=== PATIENT | female | born 1990 | race Caucasian/White ===

== ENCOUNTER 2020-02-02 19:21 | Emergency (ER) | payer OTHER, SELFPAY ==
[2020-02-02 19:42] LABS: Basophils # 0.1 10^3/uL (0.0-0.1); Basophils % 0.6 %; Eosinophils % 0.1 %; Hematocrit 39.3 % (37.0-47.0); Hemoglobin 12.5 g/dL (11.5-15.3); Lymphocytes # 1.6 10^3/uL (0.8-4.8); Mean Corpuscular HGB Conc 31.8 g/dL (30.0-36.0); Mean Corpuscular Hemoglobin 29.1 pg (28.0-34.0); Mean Corpuscular Volume 91.6 fL (81-99); Mean Platelet Volume 10.2 fL (7.4-10.4); Monocytes # 0.5 10^3/uL (0.2-0.9); Monocytes % 5.9 %; Neutrophils # 5.91 10^3/uL (1.8-7.7); Neutrophils % 73.2 %; Nucleated Red Blood Cells % 0 %; Platelet Count 258 10^3/cmm (130-400); Red Blood Count 4.29 10^6/uL (4.1-5.3); Red Cell Distribution Width 14.5 % (12.1-15.1); White Blood Count 8.1 10^3/uL (4.0-10.0)
[2020-02-02 19:54] VITALS: BP 128/83; PULSE 100; RESP 18; TEMP 36.7; O2SAT 100; BMI 35.1
[2020-02-02 19:57] LABS: HCG, Serum Qual Negative (Negative)
[2020-02-02 20:01] LABS: Alanine Aminotransferase 35 U/L (0-33); Albumin Level 4.1 g/dL (3.5-5.2); Alkaline Phosphatase 88 IU/L (35-105); Anion Gap 15.2 (5-19); Aspartate Amino Transferase 22 U/L (0-32); Blood Urea Nitrogen 9 mg/dL (6-20); Calcium 8.6 mg/dL (8.5-10.5); Carbon Dioxide 22 mmol/L (22-29); Chloride 105 mmol/L (98-107); Globulin 2.9 g/dL (1.3-4.6); Glomerular Filtration Rate 65.6 mL/min (90-130); Glucose 111 mg/dL (65-115); Lipase 148 U/L (13-60); Osmolality Calculated 283 mOsm/kg (285-295); Potassium 4.2 mmol/L (3.5-5.1); Sodium 138 mmol/L (136-145); Total Bilirubin 0.7 mg/dL (0.15-1.2)
--- NOTE | 2020-02-02 20:40 | W.ED.ABDPA2 ---
HPI - Abdominal Pain General: Chief Complaint: Abdominal Pain Stated Complaint: l breast pain, n/v/d, back pain Time Seen by Provider: 02/02/20 20:33 Source: patient Mode of arrival: ambulatory Limitations: no limitations History of Present Illness: HPI narrative: 29-year-old female who states over the last days she has been having lower back and lower abdominal pain that is been sharp and crampy in nature. States she is also had diarrhea in vomiting. States pain is a 5 out of 10. She denies any worsening or improving factors. She denies any fevers. States she is also had some left breast pain. She denies any nipple discharge or fevers. Associated Symptoms: Reports nausea and vomiting; Denies chills, dysuria and fever(s) Review of Systems Const: Denies: fever(s), chills, body aches or change in appetite Eyes: Denies: blurry vision or eye discomfort ENMT: Denies: throat pain or dental pain Card: Denies: chest pain Resp: Denies: dyspnea GI: Reports: abdominal pain, nausea and vomiting : Denies: dysuria Musc: Denies: neck pain or back pain Skin/Breast: Reports: breast pain Neuro: Denies: headache(s) Psych: Denies: depression [place]/Lymph: Denies: easy bruising All/Imm: Denies: urticaria Physical Exam Const: COMMON NORMALS: no acute distress, patient oriented x3 and healthy appearing HENMT: COMMON NORMALS: normocephalic and atraumatic HEAD & SCALP: normocephalic and atraumatic Eye: COMMON NORMALS: Equal, round and reactive pupils present and EOMs intact bilaterally PUPIL: Yes Equal, round and reactive pupils present Neck/C-Spine: COMMON NORMALS: full ROM and supple Chest: COMMONS NORMALS: normal inspection of the chest and normal palpation of entire chest wall OTHER: This left breast is normal-appearing. She has no redness or warmth to touch. No masses were palpated Resp: COMMON NORMALS: normal respiratory effort, No retractions, No use of accessory muscles and clear to auscultation bilaterally AUSCULTATION: clear to auscultation bilaterally Cardio: COMMON NORMALS: regular rate, regular rhythm and No murmurs present (Cardio) RATE: regular rate RHYTHM: regular rhythm GI: COMMON NORMALS: Normal to inspection, nondistended, normoactive bowel sounds present, Soft to palpation, non-tender and no masses PALPATION: Yes Soft to palpation Extremity: COMMON NORMALS: normal to inspection and full ROM Neuro: COMMON NORMALS: patient oriented x3, moves all extremities and no focal motor deficits Psych: COMMON NORMALS: mental status grossly normal, Normal thought process present and cooperative THOUGHT PROCESS: Normal thought process present Skin: COMMON NORMALS: no rashes or lesions noted and no wounds GENERAL SKIN EXAM: no rashes or lesions noted Course Vital Signs: Vital signs: Vital Signs Temperature 98.1 F 02/02/20 19:54 Pulse Rate 104 H 02/02/20 20:44 Respiratory Rate 14 02/02/20 21:09 Blood Pressure 126/62 02/02/20 20:44 Pulse Oximetry 99 02/02/20 20:44 MDM - Abdominal Pain MDM Narrative: Medical decision making narrative: Rachana presents here with abdominal pain along with diarrhea and vomiting. CT shows a possible colitis. Patient's blood work here is normal. We will place her on Cipro Flagyl along with pain meds. She is stable for discharge and return if worsening. She understands and agrees to plan Lab Data: Labs: Lab Results 02/02/20 02/02/20 02/02/20 Range/Units 19:35 19:35 19:35 WBC 8.1 (4.0-10.0) 10^3/ uL RBC 4.29 (4.1-5.3) 10^6/u L Hgb 12.5 (11.5-15.3) g/dL Hct 39.3 (37.0-47.0) % MCV 91.6 (81-99) fL MCH 29.1 (28.0-34.0) pg MCHC 31.8 (30.0-36.0) g/dL RDW 14.5 (12.1-15.1) % Plt Count 258 (130-400) 10^3/c mm MPV 10.2 (7.4-10.4) fL Neut % (Auto) 73.2 % Lymph % (Auto) 20.0 % [place] % (Auto) 5.9 % Eos % (Auto) 0.1 % Baso % (Auto) 0.6 % Neut # (Auto) 5.91 (1.8-7.7) 10^3/u L Lymph # (Auto) 1.6 (0.8-4.8) 10^3/u L [place] # (Auto) 0.5 (0.2-0.9) 10^3/u L Eos # (Auto) 0.0 (0.0-0.8) 10^3/u L Baso # (Auto) 0.1 (0.0-0.1) 10^3/u L Nucleated RBC % (a uto) 0 % Nucleated RBCs # 0.0 /100WBC Sodium 138 (136-145) mmol/L Potassium 4.2 (3.5-5.1) mmol/L Chloride 105 (98-107) mmol/L Carbon Dioxide 22 (22-29) mmol/L Anion Gap 15.2 (5-19) BUN 9 (6-20) mg/dL Creatinine 1.0 H (0.5-0.9) mg/dL GFR Calculation 65.6 L (90-130) mL/min Glucose 111 (65-115) mg/dL Calculated Osmolal ity 283 L (285-295) mOsm/k g Calcium 8.6 (8.5-10.5) mg/dL Total Bilirubin 0.7 (0.15-1.2) mg/dL AST 22 (0-32) U/L ALT 35 H (0-33) U/L Alkaline Phosphata se 88 (35-105) IU/L Total Protein 7.0 (6.6-8.7) g/dL Albumin 4.1 (3.5-5.2) g/dL Globulin 2.9 (1.3-4.6) g/dL Lipase 148 H (13-60) U/L HCG, Qual Negative (Negative) Urine Color (Yellow) Urine Appearance (CLEAR) Urine pH (5-7) Ur Specific Gravit y (1.005-1.030) Urine Protein (Negative) Urine Glucose (UA) (Normal) Urine Ketones (Negative) Urine Blood (Negative) Urine Nitrate (Negative) Urine Bilirubin (NEGATIVE) Urine Urobilinogen (Negative) mg/dL Ur Leukocyte Taryn ase (Negative) 02/02/20 Range/Units 20:20 WBC (4.0-10.0) 10^3/ uL RBC (4.1-5.3) 10^6/u L Hgb (11.5-15.3) g/dL Hct (37.0-47.0) % MCV (81-99) fL MCH (28.0-34.0) pg MCHC (30.0-36.0) g/dL RDW (12.1-15.1) % Plt Count (130-400) 10^3/c mm MPV (7.4-10.4) fL Neut % (Auto) % Lymph % (Auto) % [place] % (Auto) % Eos % (Auto) % Baso % (Auto) % Neut # (Auto) (1.8-7.7) 10^3/u L Lymph # (Auto) (0.8-4.8) 10^3/u L [place] # (Auto) (0.2-0.9) 10^3/u L Eos # (Auto) (0.0-0.8) 10^3/u L Baso # (Auto) (0.0-0.1) 10^3/u L Nucleated RBC % (a uto) % Nucleated RBCs # /100WBC Sodium (136-145) mmol/L Potassium (3.5-5.1) mmol/L Chloride (98-107) mmol/L Carbon Dioxide (22-29) mmol/L Anion Gap (5-19) BUN (6-20) mg/dL Creatinine (0.5-0.9) mg/dL GFR Calculation (90-130) mL/min Glucose (65-115) mg/dL Calculated Osmolal ity (285-295) mOsm/k g Calcium (8.5-10.5) mg/dL Total Bilirubin (0.15-1.2) mg/dL AST (0-32) U/L ALT (0-33) U/L Alkaline Phosphata se (35-105) IU/L Total Protein (6.6-8.7) g/dL Albumin (3.5-5.2) g/dL Globulin (1.3-4.6) g/dL Lipase (13-60) U/L HCG, Qual (Negative) Urine Color Yellow (Yellow) Urine Appearance Clear (CLEAR) Urine pH 5 (5-7) Ur Specific Gravit y 1.025 (1.005-1.030) Urine Protein Neg (Negative) Urine Glucose (UA) Norm (Normal) Urine Ketones Negative (Negative) Urine Blood Neg (Negative) Urine Nitrate Negative (Negative) Urine Bilirubin Neg (NEGATIVE) Urine Urobilinogen Norm (Negative) mg/dL Ur Leukocyte Taryn ase Negative (Negative) Imaging Data ^: CT Abd/Pel: Radiologist's impression: [facility] [address] [place] [address] CT Scan Report Signed Patient: Rachana Baig Unit #: [id number] : 1990 Age/Sex: 29 / F ADM Date: 02/02/20 Loc: ER Room/Bed: Attending Dr: Ordering Provider/Ordering MD: Estee Sanabria MD Date of Service: 02/02/20 Procedure(s): CT abdomen pelvis w con* [id number] Accession Number(s): [id number] Report Number: [id number] PROCEDURE INFORMATION: Exam: CT Abdomen And Pelvis With Contrast Exam date and time: 02/02/2020 9:23 PM Age: 29 years old Clinical indication: Abdominal pain; Generalized; Prior surgery; Surgery type: Cholecystectomy, appendectomy, hysterectomy, btl; Additional info: Abd pain TECHNIQUE: Imaging protocol: Computed tomography of the abdomen and pelvis with intravenous contrast. Radiation optimization: All CT scans at this facility use at least one of these dose optimization techniques: automated exposure control; mA and/or kV adjustment per patient size (includes targeted exams where dose is matched to clinical indication); or iterative reconstruction. Contrast material: OMNI 300; Contrast volume: 95 ml; Contrast route: INTRAVENOUS (IV); COMPARISON: [facility] [place] [facility] 01/09/2017 2:59 PM RADIATION DOSE METRICS: Total DLP (mGy-cm): 1618.11 FINDINGS: Liver: There is a diffuse decrease in hepatic parenchymal density, consistent with mild fatty infiltration. There is no focal abnormality within the liver. Gallbladder and bile ducts: There has been a cholecystectomy. Pancreas: The pancreas is normal. Spleen: The spleen is normal. Adrenals: The adrenal glands are normal. Kidneys and ureters: There are multiple bilateral renal collecting system calcifications. There is no evidence of hydronephrosis. There is no evidence of renal or ureteral calcifications. Stomach and bowel: There is no evidence of intestinal obstruction. There is mild thickening and fatty deposition in the wall of the distal gastric antrum which may be a normal appearance. There is fluid throughout the colon with mild thickening of the distal descending and sigmoid colon which could represent some nonspecific colitis or enteritis. Correlation with the clinical findings is suggested. Appendix: There has been an appendectomy. Intraperitoneal space: There is no evidence of free intraperitoneal fluid. Vasculature: Unremarkable. No abdominal aortic aneurysm. Lymph nodes: Unremarkable. No enlarged lymph nodes. Bladder: Unremarkable as visualized. Reproductive: There has been a hysterectomy. Bones/joints: Unremarkable. No acute fracture. Soft tissues: Unremarkable. CT/CT abdomen pelvis w con* [id number] IMPRESSION: 1. Nephrolithiasis. 2. Mild fatty liver. 3. Question of mild nonspecific colitis. Correlation with clinical findings is suggested. Discharge Plan Discharge Patient Disposition: Home Clinical Impression: Colitis Condition: Stable Prescriptions: [place] 5-325 mg tablet 1 tab PO Q6H PRN (Reason: pain) Qty: 10 RF: 0 ondansetron 4 mg tablet,disintegrating 4 mg PO Q6H PRN (Reason: nausea and vomiting) Qty: 14 RF: 0 ciprofloxacin HCl 500 mg tablet 500 mg PO BID Qty: 14 RF: 0 Flagyl 500 mg tablet 500 mg PO Q8H 7 Days Qty: 21 RF: 0 Discharge Orders: Discharge Order (Routine); Ordered 02/02/20 Ordered By: Estee Sanabria Referrals: Curtis Byrnes MD [Primary Care Provider] - 1-3 days Discharge Diet: Advance as tolerated Discharge Activity: Resume usual activity Patient Instructions: Infectious Colitis (ED) Coding Level of Care Code ED Mental Health Program Specialist for Chg Fwd Exam Comprehensive
[2020-02-02 20:44] VITALS: BP 126/62; PULSE 104; RESP 17; O2SAT 99
[2020-02-02 20:55] LABS: Add Urine Microscopic? NO
[2020-02-02 21:07] LABS: Bilirubin Urine Neg (NEGATIVE); Blood Urine Neg (Negative); Glucose Urine UA Norm (Normal); Ketones Urine Negative (Negative); Leukocyte Esterase Urine Negative (Negative); Nitrate Urine Negative (Negative); Protein Urine Neg (Negative); Specific Gravity, Urine 1.025 (1.005-1.030); Urine Appearance Clear (CLEAR); Urine Color Yellow (Yellow); Urobilinogen Urine Norm (Negative); pH Urine 5 (5-7)
[2020-02-02 21:09] VITALS: RESP 14
[2020-02-02] MEDS: morphine 4 mg/mL SDV 1 mL IVP (21:09)
[2020-02-02] MEDS: ondansetron 2 mg/ML SDV 2 mL 4 MG IVP (21:10)
--- NOTE | 2020-02-02 21:12 | CTR_ITS ---
PROCEDURE INFORMATION: Exam: CT Abdomen And Pelvis With Contrast Exam date and time: 02/02/2020 9:23 PM Age: 29 years old Clinical indication: Abdominal pain; Generalized; Prior surgery; Surgery type: Cholecystectomy, appendectomy, hysterectomy, btl; Additional info: Abd pain TECHNIQUE: Imaging protocol: Computed tomography of the abdomen and pelvis with intravenous contrast. Radiation optimization: All CT scans at this facility use at least one of these dose optimization techniques: automated exposure control; mA and/or kV adjustment per patient size (includes targeted exams where dose is matched to clinical indication); or iterative reconstruction. Contrast material: OMNI 300; Contrast volume: 95 ml; Contrast route: INTRAVENOUS (IV); COMPARISON: US [facility] [place] [facility] 01/09/2017 2:59 PM RADIATION DOSE METRICS: Total DLP (mGy-cm): 1618.11 FINDINGS: Liver: There is a diffuse decrease in hepatic parenchymal density, consistent with mild fatty infiltration. There is no focal abnormality within the liver. Gallbladder and bile ducts: There has been a cholecystectomy. Pancreas: The pancreas is normal. Spleen: The spleen is normal. Adrenals: The adrenal glands are normal. Kidneys and ureters: There are multiple bilateral renal collecting system calcifications. There is no evidence of hydronephrosis. There is no evidence of renal or ureteral calcifications. Stomach and bowel: There is no evidence of intestinal obstruction. There is mild thickening and fatty deposition in the wall of the distal gastric antrum which may be a normal appearance. There is fluid throughout the colon with mild thickening of the distal descending and sigmoid colon which could represent some nonspecific colitis or enteritis. Correlation with the clinical findings is suggested. Appendix: There has been an appendectomy. Intraperitoneal space: There is no evidence of free intraperitoneal fluid. Vasculature: Unremarkable. No abdominal aortic aneurysm. Lymph nodes: Unremarkable. No enlarged lymph nodes. Bladder: Unremarkable as visualized. Reproductive: There has been a hysterectomy. Bones/joints: Unremarkable. No acute fracture. Soft tissues: Unremarkable. CT/CT abdomen pelvis w con* [id number] IMPRESSION: 1. Nephrolithiasis. 2. Mild fatty liver. 3. Question of mild nonspecific colitis. Correlation with clinical findings is suggested. Radiation Dose CTDIVOL = (mGy): DLP = 1618.11 (mGy-cm)
[2020-02-02] MEDS: iohexol 300 mg/mL 100 mL Btl IV (21:31)
[2020-02-02 23:02] VITALS: BP 143/74; PULSE 88; RESP 14; O2SAT 98
== END 2020-02-02 23:03 | disposition home or self-care (01) ==
PROVIDERS: Emergency Provider Emergency Medicine; PCP Family Medicine
DX: K52.9 Noninfective gastroenteritis and colitis, unspecified (principal)
CPT/HCPCS: 12345; 36415; 74177; 80053; 81003; 83690; 84703; 85025; 96374; 96375; 96376; 99282; 99283; J2270; J2405; Q9967

== ENCOUNTER → 2020-02-16 16:32 | Outpatient (BNVA) | payer OTHER, SELFPAY | PROVIDERS: Family Provider Family Medicine; PCP Family Medicine; Visit Provider Obstetrics & Gynecology | DX: N87.1 Moderate cervical dysplasia (principal); Z87.42 Personal history of other diseases of the female genital tract; Z90.710 Acquired absence of both cervix and uterus | CPT/HCPCS: 88175 ==

== ENCOUNTER → 2020-08-14 10:20 | Outpatient (BNVA) | payer OTHER, SELFPAY | PROVIDERS: Family Provider Family Medicine; PCP Family Medicine; Visit Provider Obstetrics & Gynecology | DX: N87.1 Moderate cervical dysplasia (principal); Z87.42 Personal history of other diseases of the female genital tract | CPT/HCPCS: 88175 ==

== ENCOUNTER 2020-10-11 14:33 | Emergency (ER) | payer OTHER, SELFPAY ==
[2020-10-11 15:12] VITALS: BP 113/75; PULSE 89; RESP 18; TEMP 37; O2SAT 97; BMI 35.3
--- NOTE | 2020-10-11 16:13 | ED_ITS ---
Documented by User: KHADAR Alston 10/12/20 07:55 HPI - Abdominal Pain General: Chief Complaint: Abdominal Pain Stated Complaint: vomiting, blood in stool Time Seen by Provider: 10/11/20 16:03 History of Present Illness: HPI narrative: Patient is a 30-year-old female comes to the ED with abdominal pain, nausea vomiting diarrhea. Patient says symptoms started last night. She says the abdominal pain is predominantly in the left lower quadrant and she rates it a 7 out of 10. She describes the pain as a cramping pain that does not relieve after bowel movement. She says the abdominal pain started right away along with the nausea, vomiting and diarrhea. She describes having many liquid diarrhea BMs today and last night. She reports having some red blood on the tissue paper when she wipes. Multiple episodes of vomiting today and has not been able to keep any p.o. food or fluids down. Denies any fever, upper respiratory symptoms, chest pain, shortness of breath, UTI symptoms. She endorses having chills. Patient admits to having similar symptoms last year and was diagnosed with colitis then. Associated Symptoms: Reports chills, diarrhea, nausea and vomiting; Denies constipation, dysuria, fever(s), hematochezia and hematuria Review of Systems Const: Reports: chills; Denies: fever(s) or fatigue Eyes: Denies: change in vision or eye discomfort ENMT: Denies: throat pain, odynophagia, nasal discharge or nasal congestion Card: Denies: chest pain, palpitations, edema, swelling of feet/ankles, dyspnea on exertion or orthopnea Resp: Denies: dyspnea, productive cough or non-productive cough GI: Reports: abdominal pain, nausea, vomiting and diarrhea; Denies: constipation or hematochezia : Denies: flank pain, dysuria or hematuria Musc: Denies: neck pain, back pain or extremity swelling Skin/Breast: Denies: rash or new lesions Neuro: Denies: headache(s), numbness in extremities or weakness in extremities PFSH ED PFSH: Medical History Anxiety and depression Diagnosed in 2017-symptoms controlled on medicine managed by primary care provider. She does not have a therapist No pertinent past medical history Denies diabetes, asthma, hypertension, seizures, DVT/PE PMD: Dr. Byrnes Surgical History History of kidney surgery Placement of ureteral stents in 2007 for kidney stones which were removed later. S/P appendectomy 2006-------------> laparoscopic procedure done in [place]. Appendix was taken out incidentally at time of gallbladder surgery S/P breast augmentation in 2013 S/P cholecystectomy 2006----> laparoscopic procedure done in 2006 and [place]. Appendix was taken out incidentally at the same time. S/P hysterectomy Laparoscopic-assisted vaginal hysterectomy with bilateral salpingectomy on 12/24/2018 for lower abdominal pain and heavy periods [place] [facility] [place] Pathology showed mild endocervical atypia consistent with history of previous cervical abnormalities treated with a LEEP. Myometrium showed superficial adenomyosis. Benign tubes endometrium and serosa. S/P LEEP (loop electrosurgical excision procedure) 08/21/2017----> [place] [facility] [place]. 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 ECC was benign. S/P tubal ligation tubal ligation via umbilical incision on 01/15/2017. Family History Father Heart disease Hypertension Diabetes Hyperlipidemia Stroke Grandfather Heart disease paternal Hypertension paternal Diabetes paternal Hyperlipidemia paternal Stroke paternal Mother Hyperlipidemia Grandmother Hyperlipidemia paternal Denies family history of Colon cancer Ovarian cancer Breast cancer Uterine cancer Thyroid condition Physical Exam Const: COMMON NORMALS: no acute distress, patient oriented x3 and alert GENERAL APPEARANCE: cooperative and comfortable HENMT: COMMON NORMALS: normocephalic HEAD & SCALP: normocephalic MOUTH: Normal oral and palatal mucosa present THROAT: posterior oropharynx normal and uvula midline Eye: COMMON NORMALS: Equal, round and reactive pupils present PUPIL: Yes Equal, round and reactive pupils present Neck/C-Spine: COMMON NORMALS: supple GENERAL: Yes normal visual inspection Resp: COMMON NORMALS: normal respiratory effort, No retractions, No use of accessory muscles and clear to auscultation bilaterally AUSCULTATION: clear to auscultation bilaterally Cardio: COMMON NORMALS: regular rate, regular rhythm, S1 normal heart sound present, S2 normal heart sound present, No gallops present (Cardio), No clicks present (Cardio), No murmurs present (Cardio) and Peripheral pulses 2+ throughout RATE: regular rate RHYTHM: regular rhythm HEART SOUNDS: S1 normal heart sound present and S2 normal heart sound present PERIPHERAL PULSES: Peripheral pulses 2+ throughout GI: COMMON NORMALS: Normal to inspection, nondistended, normoactive bowel sounds present, Soft to palpation and no masses INSPECTION: Yes central obesity PALPATION: Yes Soft to palpation and Yes Tenderness to palpation present (GI) (Generalized abdominal tenderness throughout all 4 quadrants.) Details: LLQ (Left lower quadrant more tender upon palpation) : COMMON NORMALS: Yes no CVA tenderness BLADDER/KIDNEY EXAM: Yes no CVA tenderness Back/Pelvis: COMMON NORMALS: no CVA tenderness Extremity: COMMON NORMALS: normal to inspection Neuro: COMMON NORMALS: patient oriented x3 SENSORIUM/ORIENTATION: Yes alert GAIT: Yes Normal gait present Skin: GENERAL SKIN EXAM: dry skin Course Vital Signs: Vital signs: Vital Signs Temperature 98.6 F 10/11/20 15:12 Pulse Rate 82 10/11/20 20:20 Respiratory Rate 17 10/11/20 20:20 Blood Pressure 113/73 10/11/20 20:20 Pulse Oximetry 98 10/11/20 20:20 MDM - Abdominal Pain MDM Narrative: Medical decision making narrative: Patient is a 30-year-old female comes to the ED with nausea vomiting diarrhea. Patient appears nontoxic and has some mild generalized tenderness throughout her abdomen, particularly in the left lower quadrant. All labs are unremarkable. CT abdomen pelvis showed colitis. Patient was discharged home with prescriptions for Cipro, Flagyl and Zofran. She was told to follow-up with her PCP in 7 to 10 days for reevaluation. Return to ED precautions given. Patient stood agree with plan. Lab Data: Attestation: I reviewed the patient's lab results. Labs: Lab Results 10/11/20 10/11/20 10/11/20 Range/Units 16:52 16:52 16:52 WBC Cancelled Corrected WBC Cancelled RBC Cancelled Hgb Cancelled Hct Cancelled MCV Cancelled MCH Cancelled MCHC Cancelled RDW Cancelled Plt Count Cancelled MPV Cancelled Gran % Cancelled Neut % (Auto) Cancelled Lymph % (Auto) Cancelled [place] % (Auto) Cancelled Eos % (Auto) Cancelled Baso % (Auto) Cancelled Neut # (Auto) Cancelled Lymph # (Auto) Cancelled [place] # (Auto) Cancelled Eos # (Auto) Cancelled Baso # (Auto) Cancelled Absolute Gran (aut o) Cancelled Nucleated RBC % (a uto) Cancelled Nucleated RBCs # Cancelled Sodium 136 (136-145) mmol/L Potassium 4.3 (3.5-5.1) mmol/L Chloride 102 (98-107) mmol/L Carbon Dioxide 24 (22-29) mmol/L Anion Gap 14.3 (5-19) BUN 9 (6-20) mg/dL Creatinine 0.6 (0.5-0.9) mg/dL GFR Calculation 117.4 (90-130) mL/min Glucose 92 (65-115) mg/dL Calculated Osmolal ity 280 L (285-295) mOsm/k g Calcium 8.4 L (8.5-10.5) mg/dL Total Bilirubin 0.8 (0.15-1.2) mg/dL AST 14 (0-32) U/L ALT 15 (0-33) U/L Alkaline Phosphata se 92 (35-105) IU/L Total Protein 6.9 (6.6-8.7) g/dL Albumin 4.3 (3.5-5.2) g/dL Globulin 2.6 (1.3-4.6) g/dL Lipase 14 (13-60) U/L HCG, Qual Negative (Negative) Urine Color (Yellow) Urine Appearance (CLEAR) Urine pH (5-7) Ur Specific Gravit y (1.005-1.030) Urine Protein (Negative) Urine Glucose (UA) (Normal) Urine Ketones (Negative) Urine Blood (Negative) Urine Nitrate (Negative) Urine Bilirubin (Negative) Urine Urobilinogen (Negative) mg/dL Ur Leukocyte Taryn ase (Negative) Urine RBC (0-2) /hpf Urine WBC (0-5) /hpf Ur Squamous Epith Cells (0-5) /hpf Amorphous Sediment Urine Bacteria (NONE) /hpf 10/11/20 10/11/20 Range/Units 16:52 18:47 WBC 8.0 Corrected WBC RBC 4.23 Hgb 12.5 Hct 38.1 MCV 90.1 MCH 29.6 MCHC 32.8 RDW 13.1 Plt Count 205 MPV 10.8 H Gran % Neut % (Auto) 80.3 Lymph % (Auto) 13.9 [place] % (Auto) 5.1 Eos % (Auto) 0.0 Baso % (Auto) 0.4 Neut # (Auto) 6.42 Lymph # (Auto) 1.1 [place] # (Auto) 0.4 Eos # (Auto) 0.0 Baso # (Auto) 0.0 Absolute Gran (aut o) Nucleated RBC % (a uto) 0 Nucleated RBCs # 0.0 Sodium (136-145) mmol/L Potassium (3.5-5.1) mmol/L Chloride (98-107) mmol/L Carbon Dioxide (22-29) mmol/L Anion Gap (5-19) BUN (6-20) mg/dL Creatinine (0.5-0.9) mg/dL GFR Calculation (90-130) mL/min Glucose (65-115) mg/dL Calculated Osmolal ity (285-295) mOsm/k g Calcium (8.5-10.5) mg/dL Total Bilirubin (0.15-1.2) mg/dL AST (0-32) U/L ALT (0-33) U/L Alkaline Phosphata se (35-105) IU/L Total Protein (6.6-8.7) g/dL Albumin (3.5-5.2) g/dL Globulin (1.3-4.6) g/dL Lipase (13-60) U/L HCG, Qual (Negative) Urine Color Yellow (Yellow) Urine Appearance Clear (CLEAR) Urine pH 5 (5-7) Ur Specific Gravit y 1.010 (1.005-1.030) Urine Protein Neg (Negative) Urine Glucose (UA) Norm (Normal) Urine Ketones Negative (Negative) Urine Blood Neg (Negative) Urine Nitrate Negative (Negative) Urine Bilirubin Neg (Negative) Urine Urobilinogen Norm (Negative) mg/dL Ur Leukocyte Taryn ase Negative (Negative) Urine RBC None (0-2) /hpf Urine WBC None (0-5) /hpf Ur Squamous Epith Cells 0-4 H (0-5) /hpf Amorphous Sediment Not Reportable Urine Bacteria Trace (NONE) /hpf Imaging Data ^: CT Abd/Pel: Attestation: I personally reviewed and interpreted this imaging study as follows: Radiologist's impression: [id number] [place], [place] [address]KX Scan ReportSigned Patient: Talita Baig #: [id number]: 1990Acct#:[id number]/Sex: 30 / FADM Date: 10/11/20Loc: ERRoom/Bed:Attending Dr: Ordering Provider/Ordering MD: John Arboleda Date of Service: 10/11/20 Procedure(s): CT abdomen pelvis w con* [id number] Accession Number(s): [id number] Report Number: [id number] PROCEDURE INFORMATION: Exam: CT Abdomen And Pelvis With Contrast Exam date and time: 10/11/2020 4:55 PM Age: 30 years old Clinical indication: Nausea and vomiting and other: Diarrhea; Abdominal pain; Generalized; Prior surgery; Surgery type: Hyst, tubal, appy, gb, breast aug; Additional info: Abdom pain, n/v/d TECHNIQUE: Imaging protocol: Computed tomography of the abdomen and pelvis with contrast. Total images: 237 Radiation optimization: All CT scans at this facility use at least one of these dose optimization techniques: automated exposure control; mA and/or kV adjustment per patient size (includes targeted exams where dose is matched to clinical indication); or iterative reconstruction. Contrast material: OMNI 300; Contrast volume: 95 ml; Contrast route: INTRAVENOUS (IV); COMPARISON: CT abdomen pelvis w con* [id number] 02/02/2020 9:20 PM RADIATION DOSE METRICS: Total DLP (mGy-cm): 1643.22 FINDINGS: Lungs: Limited assessment of the lung bases fails to reveal evidence for active cardiopulmonary process. Liver: Mild diffuse fatty infiltration of the liver. No visible hepatic mass or cystic structure. Gallbladder and bile ducts: Status post cholecystectomy. Pancreas: Pancreas unremarkable. No visible pancreatic ductal ectasia. Spleen: Normal. No splenomegaly. Adrenal glands: Adrenal glands unremarkable. Kidneys and ureters: No hydronephrosis or perinephric fluid. Again note of small foci of nonobstructing calyceal nephrolithiasis right kidney the largest measuring 3 mm superior pole period no visible ureterolithiasis. No visible nephrolithiasis left kidney. No visible left ureterolithiasis. Stomach and bowel: Moderate grade diffuse either inflammatory or infectious colitis greatest involvement from the mid transverse colon to the rectosigmoid colon. No evidence for significant diverticulosis coli or diverticulitis. Nonobstructive bowel pattern. No associated significant adynamic or reactive ileus. Appendix: Status post appendectomy. Intraperitoneal space: No visible pneumoperitoneum or intraperitoneal ascites. Vasculature: The abdominal aorta is nonaneurysmal. Lymph nodes: Few small retroperitoneal lymph nodes most likely reactive. No generalized mesenteric or retroperitoneal lymphadenopathy identified. Urinary bladder: Urinary bladder unremarkable. Reproductive: Status post hysterectomy. Bones/joints: No visible active or acute osseous pathology. Soft tissues: Bilateral breast implants. Other findings: Obesity. CT/CT abdomen pelvis w con* [id number] IMPRESSION: 1. Moderate grade diffuse either inflammatory or infectious colitis greatest involvement from the mid transverse colon to the rectosigmoid colon. 2. Right nephrolithiasis. 3. Mild diffuse fatty infiltration of the liver. Radiation Dose CTDIVOL = (mGy): DLP = 1643.22 (mGy-cm) Dictated By:Marco A Morrison By:Marco A Morrison Date/Time:10/11/20 1733DD/ 1732 Discharge Plan Discharge Patient Disposition: Home Clinical Impression: Colitis Condition: Stable Prescriptions: New Cipro 500 mg tablet 500 mg PO BID Qty: 14 RF: 0 Flagyl 500 mg tablet 500 mg PO BID 7 Days Qty: 14 RF: 0 Zofran 4 mg tablet 4 mg PO Q8H 3 Days Qty: 9 RF: 0 No Action fluoxetine [Prozac] 40 mg capsule 80 mg PO BEDTIME RF: 0 trazodone 50 mg tablet 50 - 100 mg PO BEDTIME PRN (Reason: Sleep) RF: 0 sumatriptan succinate 25 mg tablet 25 mg PO PRN RF: 0 buspirone 30 mg tablet 60 mg PO BEDTIME RF: 0 ibuprofen 200 mg Tablet 800 mg PO PRN RF: 0 melatonin 5 mg Tablet 15 mg PO BEDTIME RF: 0 Discharge Orders: Discharge ED (Routine); Ordered 10/11/20 Ordered By: Cyril Gomez Referrals: Curtis Byrnes MD [Primary Care Provider] - Discharge Diet: Advance as tolerated and As Directed Discharge Activity: Increase activity as tolerated Patient Instructions: Gastroenteritis (ED) Activity Restrictions/Additional Instructions: Follow-up with medical provider as directed. Take medications as prescribed. Return to the ER or your medical provider if condition worsens. Please read and understand discharge instructions. If any questions ask please. Drink plenty of fluids. Can use Imodium to help with diarrhea. Follow-up with your medical provider in next 5 to 7 days. Coding Level of Care Code ED Director Of Provider Relations for Chg Fwd Exam Comprehensive Documented by User: PATRICK Llamas 10/12/20 00:02 HPI - Abdominal Pain General: Chief Complaint: Abdominal Pain Stated Complaint: vomiting, blood in stool Time Seen by Provider: 10/11/20 16:03 PFSH ED PFSH: Medical History Anxiety and depression Diagnosed in 2017-symptoms controlled on medicine managed by primary care provider. She does not have a therapist No pertinent past medical history Denies diabetes, asthma, hypertension, seizures, DVT/PE PMD: Dr. Byrnes Surgical History History of kidney surgery Placement of ureteral stents in 2007 for kidney stones which were removed later. S/P appendectomy 2006-------------> laparoscopic procedure done in [place]. Appendix was taken out incidentally at time of gallbladder surgery S/P breast augmentation in 2013 S/P cholecystectomy 2006----> laparoscopic procedure done in 2006 and [place]. Appendix was taken out incidentally at the same time. S/P hysterectomy Laparoscopic-assisted vaginal hysterectomy with bilateral salpingectomy on 12/24/2018 for lower abdominal pain and heavy periods [place] [facility] [place] Pathology showed mild endocervical atypia consistent with history of previous cervical abnormalities treated with a LEEP. Myometrium showed superficial adenomyosis. Benign tubes endometrium and serosa. S/P LEEP (loop electrosurgical excision procedure) 08/21/2017----> [place] [facility] [place]. 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 ECC was benign. S/P tubal ligation tubal ligation via umbilical incision on 01/15/2017. Family History Father Heart disease Hypertension Diabetes Hyperlipidemia Stroke Grandfather Heart disease paternal Hypertension paternal Diabetes paternal Hyperlipidemia paternal Stroke paternal Mother Hyperlipidemia Grandmother Hyperlipidemia paternal Denies family history of Colon cancer Ovarian cancer Breast cancer Uterine cancer Thyroid condition Course Vital Signs: Vital signs: Vital Signs Temperature 98.6 F 10/11/20 15:12 Pulse Rate 82 10/11/20 20:20 Respiratory Rate 17 10/11/20 20:20 Blood Pressure 113/73 10/11/20 20:20 Pulse Oximetry 98 10/11/20 20:20 MDM - Abdominal Pain Lab Data: Labs: Lab Results 10/11/20 10/11/20 10/11/20 Range/Units 16:52 16:52 16:52 WBC Cancelled Corrected WBC Cancelled RBC Cancelled Hgb Cancelled Hct Cancelled MCV Cancelled MCH Cancelled MCHC Cancelled RDW Cancelled Plt Count Cancelled MPV Cancelled Gran % Cancelled Neut % (Auto) Cancelled Lymph % (Auto) Cancelled [place] % (Auto) Cancelled Eos % (Auto) Cancelled Baso % (Auto) Cancelled Neut # (Auto) Cancelled Lymph # (Auto) Cancelled [place] # (Auto) Cancelled Eos # (Auto) Cancelled Baso # (Auto) Cancelled Absolute Gran (aut o) Cancelled Nucleated RBC % (a uto) Cancelled Nucleated RBCs # Cancelled Sodium 136 (136-145) mmol/L Potassium 4.3 (3.5-5.1) mmol/L Chloride 102 (98-107) mmol/L Carbon Dioxide 24 (22-29) mmol/L Anion Gap 14.3 (5-19) BUN 9 (6-20) mg/dL Creatinine 0.6 (0.5-0.9) mg/dL GFR Calculation 117.4 (90-130) mL/min Glucose 92 (65-115) mg/dL Calculated Osmolal ity 280 L (285-295) mOsm/k g Calcium 8.4 L (8.5-10.5) mg/dL Total Bilirubin 0.8 (0.15-1.2) mg/dL AST 14 (0-32) U/L ALT 15 (0-33) U/L Alkaline Phosphata se 92 (35-105) IU/L Total Protein 6.9 (6.6-8.7) g/dL Albumin 4.3 (3.5-5.2) g/dL Globulin 2.6 (1.3-4.6) g/dL Lipase 14 (13-60) U/L HCG, Qual Negative (Negative) Urine Color (Yellow) Urine Appearance (CLEAR) Urine pH (5-7) Ur Specific Gravit y (1.005-1.030) Urine Protein (Negative) Urine Glucose (UA) (Normal) Urine Ketones (Negative) Urine Blood (Negative) Urine Nitrate (Negative) Urine Bilirubin (Negative) Urine Urobilinogen (Negative) mg/dL Ur Leukocyte Taryn ase (Negative) Urine RBC (0-2) /hpf Urine WBC (0-5) /hpf Ur Squamous Epith Cells (0-5) /hpf Amorphous Sediment Urine Bacteria (NONE) /hpf 10/11/20 10/11/20 Range/Units 16:52 18:47 WBC 8.0 Corrected WBC RBC 4.23 Hgb 12.5 Hct 38.1 MCV 90.1 MCH 29.6 MCHC 32.8 RDW 13.1 Plt Count 205 MPV 10.8 H Gran % Neut % (Auto) 80.3 Lymph % (Auto) 13.9 [place] % (Auto) 5.1 Eos % (Auto) 0.0 Baso % (Auto) 0.4 Neut # (Auto) 6.42 Lymph # (Auto) 1.1 [place] # (Auto) 0.4 Eos # (Auto) 0.0 Baso # (Auto) 0.0 Absolute Gran (aut o) Nucleated RBC % (a uto) 0 Nucleated RBCs # 0.0 Sodium (136-145) mmol/L Potassium (3.5-5.1) mmol/L Chloride (98-107) mmol/L Carbon Dioxide (22-29) mmol/L Anion Gap (5-19) BUN (6-20) mg/dL Creatinine (0.5-0.9) mg/dL GFR Calculation (90-130) mL/min Glucose (65-115) mg/dL Calculated Osmolal ity (285-295) mOsm/k g Calcium (8.5-10.5) mg/dL Total Bilirubin (0.15-1.2) mg/dL AST (0-32) U/L ALT (0-33) U/L Alkaline Phosphata se (35-105) IU/L Total Protein (6.6-8.7) g/dL Albumin (3.5-5.2) g/dL Globulin (1.3-4.6) g/dL Lipase (13-60) U/L HCG, Qual (Negative) Urine Color Yellow (Yellow) Urine Appearance Clear (CLEAR) Urine pH 5 (5-7) Ur Specific Gravit y 1.010 (1.005-1.030) Urine Protein Neg (Negative) Urine Glucose (UA) Norm (Normal) Urine Ketones Negative (Negative) Urine Blood Neg (Negative) Urine Nitrate Negative (Negative) Urine Bilirubin Neg (Negative) Urine Urobilinogen Norm (Negative) mg/dL Ur Leukocyte Taryn ase Negative (Negative) Urine RBC None (0-2) /hpf Urine WBC None (0-5) /hpf Ur Squamous Epith Cells 0-4 H (0-5) /hpf Amorphous Sediment Not Reportable Urine Bacteria Trace (NONE) /hpf Discharge Plan Discharge Patient Disposition: Home Clinical Impression: Colitis Condition: Stable Prescriptions: New Cipro 500 mg tablet 500 mg PO BID Qty: 14 RF: 0 Flagyl 500 mg tablet 500 mg PO BID 7 Days Qty: 14 RF: 0 Zofran 4 mg tablet 4 mg PO Q8H 3 Days Qty: 9 RF: 0 No Action fluoxetine [Prozac] 40 mg capsule 80 mg PO BEDTIME RF: 0 trazodone 50 mg tablet 50 - 100 mg PO BEDTIME PRN (Reason: Sleep) RF: 0 sumatriptan succinate 25 mg tablet 25 mg PO PRN RF: 0 buspirone 30 mg tablet 60 mg PO BEDTIME RF: 0 ibuprofen 200 mg Tablet 800 mg PO PRN RF: 0 melatonin 5 mg Tablet 15 mg PO BEDTIME RF: 0 Discharge Orders: Discharge ED (Routine); Ordered 10/11/20 Ordered By: Cyril Gomez Referrals: Curtis Byrnes MD [Primary Care Provider] - Discharge Diet: Advance as tolerated and As Directed Discharge Activity: Increase activity as tolerated Patient Instructions: Gastroenteritis (ED) Activity Restrictions/Additional Instructions: Follow-up with medical provider as directed. Take medications as prescribed. Return to the ER or your medical provider if condition worsens. Please read and understand discharge instructions. If any questions ask please. Drink plenty of fluids. Can use Imodium to help with diarrhea. Follow-up with your medical provider in next 5 to 7 days. Coding Level of Care Code ED Director Of Provider Relations for Chg Fwd Exam Comprehensive
--- NOTE | 2020-10-11 16:24 | CTR_ITS ---
PROCEDURE INFORMATION: Exam: CT Abdomen And Pelvis With Contrast Exam date and time: 10/11/2020 4:55 PM Age: 30 years old Clinical indication: Nausea and vomiting and other: Diarrhea; Abdominal pain; Generalized; Prior surgery; Surgery type: Hyst, tubal, appy, gb, breast aug; Additional info: Abdom pain, n/v/d TECHNIQUE: Imaging protocol: Computed tomography of the abdomen and pelvis with contrast. Total images: 237 Radiation optimization: All CT scans at this facility use at least one of these dose optimization techniques: automated exposure control; mA and/or kV adjustment per patient size (includes targeted exams where dose is matched to clinical indication); or iterative reconstruction. Contrast material: OMNI 300; Contrast volume: 95 ml; Contrast route: INTRAVENOUS (IV); COMPARISON: CT abdomen pelvis w con* [id number] 02/02/2020 9:20 PM RADIATION DOSE METRICS: Total DLP (mGy-cm): 1643.22 FINDINGS: Lungs: Limited assessment of the lung bases fails to reveal evidence for active cardiopulmonary process. Liver: Mild diffuse fatty infiltration of the liver. No visible hepatic mass or cystic structure. Gallbladder and bile ducts: Status post cholecystectomy. Pancreas: Pancreas unremarkable. No visible pancreatic ductal ectasia. Spleen: Normal. No splenomegaly. Adrenal glands: Adrenal glands unremarkable. Kidneys and ureters: No hydronephrosis or perinephric fluid. Again note of small foci of nonobstructing calyceal nephrolithiasis right kidney the largest measuring 3 mm superior pole period no visible ureterolithiasis. No visible nephrolithiasis left kidney. No visible left ureterolithiasis. Stomach and bowel: Moderate grade diffuse either inflammatory or infectious colitis greatest involvement from the mid transverse colon to the rectosigmoid colon. No evidence for significant diverticulosis coli or diverticulitis. Nonobstructive bowel pattern. No associated significant adynamic or reactive ileus. Appendix: Status post appendectomy. Intraperitoneal space: No visible pneumoperitoneum or intraperitoneal ascites. Vasculature: The abdominal aorta is nonaneurysmal. Lymph nodes: Few small retroperitoneal lymph nodes most likely reactive. No generalized mesenteric or retroperitoneal lymphadenopathy identified. Urinary bladder: Urinary bladder unremarkable. Reproductive: Status post hysterectomy. Bones/joints: No visible active or acute osseous pathology. Soft tissues: Bilateral breast implants. Other findings: Obesity. CT/CT abdomen pelvis w con* [id number] IMPRESSION: 1. Moderate grade diffuse either inflammatory or infectious colitis greatest involvement from the mid transverse colon to the rectosigmoid colon. 2. Right nephrolithiasis. 3. Mild diffuse fatty infiltration of the liver. Radiation Dose CTDIVOL = (mGy): DLP = 1643.22 (mGy-cm)
[2020-10-11] MEDS: sodium chloride 0.9% 1,000 ML 999 ML IV (16:59)
[2020-10-11] MEDS: metoclopramide 5 mg/mL SDV 2 mL 10 MG IVP (17:01)
[2020-10-11 17:02] VITALS: RESP 14
[2020-10-11] MEDS: morphine 4 mg/mL SDV 1 mL 2 MG IVP (17:02)
[2020-10-11] MEDS: iohexol 300 mg/mL 100 mL Btl IV (17:03)
[2020-10-11 17:17] LABS: Bilirubin Urine Neg (Negative); Blood Urine Neg (Negative); Glucose Urine UA Norm (Normal); Ketones Urine Negative (Negative); Leukocyte Esterase Urine Negative (Negative); Nitrate Urine Negative (Negative); Protein Urine Neg (Negative); Urine Appearance Clear (CLEAR); Urine Color Yellow (Yellow); Urobilinogen Urine Norm (Negative); pH Urine 5 (5-7)
[2020-10-11 17:20] LABS: HCG, Serum Qual Negative (Negative)
[2020-10-11] MEDS: loperamide 2 mg Capsule 4 MG PO (17:23)
[2020-10-11 17:27] LABS: Add Urine Culture? No; Bacteria Urine TRACE /hpf; Squamous Epithelial Cell Urine 0-4 /hpf (0-5)
[2020-10-11 17:42] LABS: Alanine Aminotransferase 15 U/L (0-33); Albumin Level 4.3 g/dL (3.5-5.2); Alkaline Phosphatase 92 IU/L (35-105); Anion Gap 14.3 (5-19); Aspartate Amino Transferase 14 U/L (0-32); Blood Urea Nitrogen 9 mg/dL (6-20); Calcium 8.4 mg/dL (8.5-10.5); Carbon Dioxide 24 mmol/L (22-29); Chloride 102 mmol/L (98-107); Globulin 2.6 g/dL (1.3-4.6); Glomerular Filtration Rate 117.4 mL/min (90-130); Glucose 92 mg/dL (65-115); Lipase 14 U/L (13-60); Osmolality Calculated 280 mOsm/kg (285-295); Potassium 4.3 mmol/L (3.5-5.1); Sodium 136 mmol/L (136-145); Total Bilirubin 0.8 mg/dL (0.15-1.2); Total Protein 6.9 g/dL (6.6-8.7)
[2020-10-11] MEDS: ciprofloxacin 400 MG/200 ML PREMIX 200 MG IV (17:50)
[2020-10-11 18:57] LABS: Basophils % 0.4 %; Hematocrit 38.1 % (37.0-47.0); Hemoglobin 12.5 g/dL (11.5-15.3); Lymphocytes # 1.1 10^3/uL (0.8-4.8); Lymphocytes % 13.9 %; Mean Corpuscular HGB Conc 32.8 g/dL (30.0-36.0); Mean Corpuscular Hemoglobin 29.6 pg (28.0-34.0); Mean Corpuscular Volume 90.1 fL (81-99); Mean Platelet Volume 10.8 fL (7.4-10.4); Monocytes # 0.4 10^3/uL (0.2-0.9); Monocytes % 5.1 %; Neutrophils # 6.42 10^3/uL (1.8-7.7); Neutrophils % 80.3 %; Nucleated Red Blood Cells % 0 %; Platelet Count 205 10^3/cmm (130-400); Red Blood Count 4.23 10^6/uL (4.1-5.3); Red Cell Distribution Width 13.1 % (12.1-15.1)
[2020-10-11] MEDS: metroNIDAZOLE IV 500 MG/100 ML PREMIX 100 MG IV (19:06)
[2020-10-11 20:20] VITALS: BP 113/73; PULSE 82; RESP 17; O2SAT 98
== END 2020-10-11 20:20 | disposition home or self-care (01) ==
PROVIDERS: Physician Assistant; Emergency Provider Nurse Practitioner Family; PCP Family Medicine
DX: K52.9 Noninfective gastroenteritis and colitis, unspecified (principal)
CPT/HCPCS: 74177; 80053; 81001; 83690; 84703; 85025; 96365; 96367; 96375; 99284; J0744; J2270; J2765; J7030; Q9967; S0030

== ENCOUNTER 2021-05-18 14:27 | Emergency (ER) | payer OTHER, SELFPAY ==
[2021-05-18 14:44] VITALS: BP 137/87; PULSE 96; RESP 16; TEMP 36.8; O2SAT 96
--- NOTE | 2021-05-18 15:01 | ECG_ITS ---
[facility] Test Date: 2021-05-18 Pat Name: Rachana Baig Department: Room: Gender: Female Licensed Investment Sales Assistant: : 1990 Requested By: Abigail Rashid Order Number: [id number] Christiano MD: Benny Cazares M.D. Measurements Intervals [place] Rate: 96 P: 44 NC: 172 QRS: -8 QRSD: 72 T: 62 QT: 323 QTc: 409 Interpretive Statements SINUS RHYTHM No previous ECG available for comparison Electronically Signed On 05-20-2021 13:20:22 LEAD PERSON by Benny Cazares M.D. [id number]
[2021-05-18 15:48] VITALS: BP 122/82; PULSE 91; RESP 18; O2SAT 100
--- NOTE | 2021-05-18 16:30 | ED_ITS ---
HPI - Chest Pain General: Chief Complaint: Chest Pain Stated Complaint: CHEST PAIN Time Seen by Provider: 05/18/21 16:30 History of Present Illness: HPI narrative: Ms. Baig is a 30-year-old lady with only history of psychiatric disorder presents to the emergency department due to chest pain. Chest pain began at rest approximately 1 week ago. She describes midsternal stabbing pain with mild radiation to the back. Intensity of symptoms moderate. No other typical associated cardiac features including no shortness of breath, nausea, diaphoresis. Symptoms are not worse with exertion but are mildly worse with deep inspiration. Denies similar episodes in the past. Additionally she reports headache and lower extremity edema. Review of Systems General: Reports: 10 or more systems reviewed and unremarkable except in HPI and below PFSH ED PFSH: Medical History Anxiety and depression Diagnosed in 2017-symptoms controlled on medicine managed by primary care provider. She does not have a therapist No pertinent past medical history Denies diabetes, asthma, hypertension, seizures, DVT/PE PMD: Dr. Byrnes [facility] Surgical History History of kidney surgery Placement of ureteral stents in 2007 for kidney stones which were removed later. S/P appendectomy 2006-------------> laparoscopic procedure done in [place]. Appendix was taken out incidentally at time of gallbladder surgery S/P breast augmentation in 2013 S/P cholecystectomy 2006----> laparoscopic procedure done in 2006 and [place]. Appendix was taken out incidentally at the same time. S/P hysterectomy Laparoscopic-assisted vaginal hysterectomy with bilateral salpingectomy on 12/24/2018 for lower abdominal pain and heavy periods [place] [facility] [place] Pathology showed mild endocervical atypia consistent with history of previous cervical abnormalities treated with a LEEP. Myometrium showed superficial adenomyosis. Benign tubes endometrium and serosa. S/P LEEP (loop electrosurgical excision procedure) 08/21/2017----> [place] [facility] [place]. 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 ECC was benign. S/P tubal ligation tubal ligation via umbilical incision on 01/15/2017. Family History Father Heart disease Hypertension Diabetes Hyperlipidemia Stroke Grandfather Heart disease paternal Hypertension paternal Diabetes paternal Hyperlipidemia paternal Stroke paternal Mother Hyperlipidemia Grandmother Hyperlipidemia paternal Denies family history of Colon cancer Ovarian cancer Breast cancer Uterine cancer Thyroid condition Social History Smoking and tobacco status: current every day smoker e-cigarettes E-Cigarette Details: vaporizer device and with nicotine E-cig/vape details: 5% Quit status (tobacco): has tried quititng Number of times tried to quit tobacco: 3 Second hand smoke exposure: No Physical Exam Narrative: EXAM NARRATIVE: GENERAL/CONSTITUTIONAL - well-appearing. No acute distress. Eyes - PERRL, no conjunctival injection ENMT - Atraumatic external nose and ears. Moist mucous membranes NECK - supple. trachea midline CARDIOVASCULAR - regular rate and rhythm. Trace to 1+ peripheral edema, symmetric, no calf tenderness RESPIRATORY -clear to auscultation bilaterally. ABDOMEN/GI - Nontender/Nondistended. MSK - Extremities without obvious deformity or tenderness to palpation SKIN - Warm, Dry NEURO - alert and appropriately oriented. No focal neurologic deficits. Moves all extremities equally. PSYCH - Appropriate mood and affect Course ED course: - Patient was seen and evaluated by me at bedside - Patient placed on cardiac monitors, IV access obtained - Initial evaluation notable for no acute distress, nontoxic appearance. -Symptom treatment ordered - Labs notable for no acute hematologic or metabolic abnormality to explain patient's symptoms. Troponin is negative with greater than 6 hours of onset of symptoms. D-dimer negative. Lipase mildly elevated of unclear etiology. Patient does not have epigastric tenderness to palpation and does not fit classic pancreatitis symptoms. She denies alcohol use. - Imaging notable for no acute abnormality to explain symptoms - Upon serial reexamination after treatment the patient was mildly improved - Based on patient history, evaluation, labs, and imaging as interpreted the most likely cause of the patient's condition is chest pain of uncertain etiology, elevated lipase, headache without concerning red flag symptoms. Patient is low risk by heart score. - The results of ED evaluation were discussed with the patient including prescriptions and/or symptomatic cares (if applicable) including appropriate and responsible use, followup plan, and return precautions. The patient verbalized understanding and felt safe for discharge. - Patient discharged in satisfactory condition. Vital Signs: Vital signs: Vital Signs Temperature 98.3 F 05/18/21 14:44 Pulse Rate 91 05/18/21 15:48 Respiratory Rate 18 05/18/21 15:48 Blood Pressure 122/82 05/18/21 15:48 Pulse Oximetry 100 05/18/21 15:48 MDM - Chest Pain Medical Records: Attestation: I reviewed the patient's medical records. Lab Data: Attestation: I reviewed the patient's lab results. Labs: Lab Results 05/18/21 05/18/21 05/18/21 17:20 17:20 17:20 WBC 9.4 10^3/uL 10^3/ uL (4.0-10.0) RBC 4.28 10^6/uL 10^6 /uL (4.1-5.3) Hgb 12.7 g/dL g/dL (11.5-15.3) Hct 38.5 % % (37.0-47.0) MCV 90.0 fl fl (81-99) MCH 29.7 pg pg (28.0-34.0) MCHC 33.0 g/dL g/dL (30.0-36.0) RDW 12.5 % % (12.1-15.1) Plt Count 227 10^3/cmm 10^3 /cmm (130-400) MPV 10.6 fL H fL (7.4-10.4) Neut % (Auto) 69.8 % % Lymph % (Auto) 21.1 % % [place] % (Auto) 8.1 % % Eos % (Auto) 0.2 % % Baso % (Auto) 0.3 % % Neut # (Auto) 6.56 10^3/uL 10^3 /uL (1.8-7.7) Lymph # (Auto) 2.0 10^3/uL 10^3/ uL (0.8-4.8) [place] # (Auto) 0.8 10^3/uL 10^3/ uL (0.2-0.9) Eos # (Auto) 0.0 10^3/uL 10^3/ uL (0.0-0.8) Baso # (Auto) 0.0 10^3/uL 10^3/ uL (0.0-0.1) Nucleated RBC % (a uto) 0 % % Nucleated RBCs # 0.0 /100WBC /100W BC D-Dimer Sodium 138 mmol/L mmol/L (136-145) Potassium 4.3 mmol/L mmol/L (3.5-5.1) Chloride 104 mmol/L mmol/L (98-107) Carbon Dioxide 21 mmol/L L mmol/ L (22-29) Anion Gap 17.3 (5-19) BUN 8 mg/dL mg/dL (6-20) Creatinine 0.6 mg/dL mg/dL (0.5-0.9) GFR Calculation 117.4 mL/min mL/m in (90-130) Glucose 86 mg/dL mg/dL (65-115) Calculated Osmolal ity 284 mOsm/kg L mOs m/kg (285-295) Calcium 8.4 mg/dL L mg/dL (8.5-10.5) Total Bilirubin 0.5 mg/dL mg/dL (0.15-1.2) AST 13 U/L U/L (0-32) ALT 16 U/L U/L (0-33) Alkaline Phosphata se 92 IU/L IU/L (35-105) Troponin T Baselin e 6 ng/L ng/L (0-10) Total Protein 6.6 g/dL g/dL (6.6-8.7) Albumin 4.5 g/dL g/dL (3.5-5.2) Globulin 2.1 g/dL g/dL (1.3-4.6) Lipase 75 U/L H U/L (13-60) 05/18/21 17:20 WBC RBC Hgb Hct MCV MCH MCHC RDW Plt Count MPV Neut % (Auto) Lymph % (Auto) [place] % (Auto) Eos % (Auto) Baso % (Auto) Neut # (Auto) Lymph # (Auto) [place] # (Auto) Eos # (Auto) Baso # (Auto) Nucleated RBC % (a uto) Nucleated RBCs # D-Dimer 0.31 ug/mIFEU ug/ mIFEU (0-0.59) Sodium Potassium Chloride Carbon Dioxide Anion Gap BUN Creatinine GFR Calculation Glucose Calculated Osmolal ity Calcium Total Bilirubin AST ALT Alkaline Phosphata se Troponin T Baselin e Total Protein Albumin Globulin Lipase EKG Data^: EKG 1: Attestation: I personally reviewed and interpreted this EKG as follows: EKG interpretation date: 05/18/21 EKG interpretation time: 14:50 Interpretation: Twelve-lead EKG shows a regular rhythm at a rate of 96. ID interval 172, QRS duration 72, QTc 4 9. Normal axis. Interpretation: Sinus rhythm. Discharge Plan Discharge Patient Disposition: Home Clinical Impression: Chest pain, Elevated lipase, Headache Condition: Stable Prescriptions: No Action buspirone 30 mg tablet 60 mg PO BEDTIME Qty: 60 RF: 2 fluvoxamine 100 mg tablet 150 mg PO DAILY Qty: 45 RF: 2 propranolol 20 mg tablet 20 mg PO BID PRN (Reason: anxiety) Qty: 60 RF: 2 hydroxyzine HCl 50 mg tablet 50 mg PO QID PRN (Reason: anxiety/insomnia) Qty: 120 RF: 2 melatonin 5 mg Tablet 15 mg PO BEDTIME RF: 0 ibuprofen 200 mg tablet 800 mg PO DAILY PRN (Reason: fever or pain) RF: 0 sumatriptan succinate 25 mg tablet 25 mg PO DAILY PRN (Reason: migraine headache) RF: 0 Discharge Orders: Discharge ED (Routine); Ordered 05/18/21 Ordered By: Elijah Damon Referrals: Curtis Byrnes MD [Primary Care Provider] - Discharge Diet: Usual diet Discharge Activity: Resume usual activity Patient Instructions: Chest Pain (ED), Acute Headache (ED) Activity Restrictions/Additional Instructions: Thank you for visiting the emergency department. You were seen and evaluated for chest pain and headache. The exact cause of your symptoms is unclear. You do not have pneumonia and no significant sign of infection was found. Your cardiac marker troponin was normal. There was mild elevation in your lipase however your symptoms do not correlate with classic pancreatitis. Please follow-up with your primary care provider. Please return to the emergency department for worsening symptoms or anything else that you are concerned about a feel needs emergency department evaluation. Coding Level of Care Code ED Vine Pruner for Obi Huber
--- NOTE | 2021-05-18 16:39 | XRR_ITS ---
PROCEDURE INFORMATION: Exam: XR Chest Exam date and time: 05/18/2021 4:39 PM Age: 30 years old Clinical indication: Chest wall pain; Additional info: Chest pain TECHNIQUE: Imaging protocol: XR of the chest. Views: 1 view. COMPARISON: CT abdomen pelvis w con* [id number] 10/11/2020 5:17 PM FINDINGS: Lungs: Unremarkable. No consolidation. Pleural spaces: Unremarkable. No pleural effusion. No pneumothorax. Heart/Mediastinum: Unremarkable. No cardiomegaly. Bones/joints: Unremarkable. XR/XR chest 1V portable [id number] IMPRESSION: No acute findings. Radiation Dose CTDIVOL = (mGy): DLP = (mGy-cm)
[2021-05-18 17:35] LABS: Basophils % 0.3 %; Eosinophils % 0.2 %; Hematocrit 38.5 % (37.0-47.0); Hemoglobin 12.7 g/dL (11.5-15.3); Lymphocytes % 21.1 %; Mean Corpuscular Hemoglobin 29.7 pg (28.0-34.0); Mean Platelet Volume 10.6 fL (7.4-10.4); Monocytes # 0.8 10^3/uL (0.2-0.9); Monocytes % 8.1 %; Neutrophils # 6.56 10^3/uL (1.8-7.7); Neutrophils % 69.8 %; Nucleated Red Blood Cells % 0 %; Platelet Count 227 10^3/cmm (130-400); Red Blood Count 4.28 10^6/uL (4.1-5.3); Red Cell Distribution Width 12.5 % (12.1-15.1); White Blood Count 9.4 10^3/uL (4.0-10.0)
[2021-05-18 18:01] LABS: Alanine Aminotransferase 16 U/L (0-33); Albumin Level 4.5 g/dL (3.5-5.2); Alkaline Phosphatase 92 IU/L (35-105); Anion Gap 17.3 (5-19); Aspartate Amino Transferase 13 U/L (0-32); Blood Urea Nitrogen 8 mg/dL (6-20); Calcium 8.4 mg/dL (8.5-10.5); Carbon Dioxide 21 mmol/L (22-29); Chloride 104 mmol/L (98-107); Globulin 2.1 g/dL (1.3-4.6); Glomerular Filtration Rate 117.4 mL/min (90-130); Glucose 86 mg/dL (65-115); Lipase 75 U/L (13-60); Osmolality Calculated 284 mOsm/kg (285-295); Potassium 4.3 mmol/L (3.5-5.1); Sodium 138 mmol/L (136-145); Total Bilirubin 0.5 mg/dL (0.15-1.2); Total Protein 6.6 g/dL (6.6-8.7)
[2021-05-18 18:06] LABS: Troponin(5th) Baseline 6 ng/L (0-10)
[2021-05-18 18:08] LABS: D Dimer 0.31 ug/mIFEU (0-0.59)
[2021-05-18] MEDS: ketorolac 30 mg/mL INJ 15 MG IVP (18:41)
[2021-05-18] MEDS: sodium chloride 0.9% 500 ML 999 ML IV (18:42)
[2021-05-18] MEDS: diphenhydrAMINE 50 mg/mL SDV 1mL 25 MG IVP (19:13)
[2021-05-18] MEDS: metoclopramide 5 mg/mL SDV 2 mL 10 MG IVP (19:14)
== END 2021-05-18 20:04 | disposition home or self-care (01) ==
PROVIDERS: Emergency Provider Emergency Medicine; PCP Family Medicine
DX: R07.9 Chest pain, unspecified (principal); R51.9 Headache, unspecified; R79.9 Abnormal finding of blood chemistry, unspecified; F17.290 Nicotine dependence, other tobacco product, uncomplicated
CPT/HCPCS: 71045; 80053; 83690; 84484; 85025; 85378; 93005; 96374; 96375; 99284; J1200; J1885; J2765; J7040

== ENCOUNTER → 2022-05-21 14:31 | Outpatient (BNVA) | payer OTHER, SELFPAY | PROVIDERS: PCP Family Medicine; Visit Provider Nurse Practitioner Family | DX: N39.0 Urinary tract infection, site not specified (principal) | CPT/HCPCS: 81000 ==

== ENCOUNTER 2024-07-14 13:05 | Emergency (ER) | payer OTHER, SELFPAY ==
--- NOTE | 2024-07-14 13:10 | ECG_ITS ---
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 Measurements Intervals [place] Rate: 92 P: 46 [place]: 164 QRS: 0 QRSD: 74 T: 64 QT: 328 QTc: 406 Interpretive Statements SINUS RHYTHM Compared to ECG 05/18/2021 14:43:53 No significant changes Electronically Signed On 07-15-2024 11:15:35 SCHOOL CROSSING GUARD by Benny Cazares M.D. [id number]
[2024-07-14 13:12] VITALS: BP 122/86; PULSE 94; RESP 14; TEMP 36.7; O2SAT 100; BMI 37.1
--- NOTE | 2024-07-14 13:23 | XR_ITS ---
WS: [id number] Exam: XR chest 1V portable [id number] Date/Time of Exam: 07/14/2024 1:28 PM Reason For Exam: cp Comparison 05/18/2021. Prominent RIGHT perihilar markings are unchanged and likely chronic. Remaining lung rodas are clear. No pneumothorax or pleural effusion. Normal cardiomediastinal silhouette. Bony structures are intact . XR/XR chest 1V portable [id number] IMPRESSION: 1. Prominent RIGHT perihilar markings unchanged since prior study. No acute car diopulmonary process is suspected.
--- NOTE | 2024-07-14 13:24 | ED_ITS ---
HPI - Chest Pain 2 General: Chief Complaint: Chest Pain Stated Complaint: chest pain Time Seen by Provider: 07/14/24 13:19 Source: patient Mode of arrival: ambulatory Limitations: no limitations History of Present Illness: Patient is a 33-year-old female with no pertinent past cardiac history who reports to emergency department with chest pain onset last night. Patient was not exerting herself at onset, pain reported to left chest without any radiation. She states it is a 4/10, feels sharp and is reproducible to palpation. She states that she psyched herself in her thinking she was having a heart attack. She does note extensive family history of cardiac issues on her dad side, or her dad had his first heart attack at age 35. Patient has no other associated symptoms to report, other than feeling off today. No shortness of breath, palpitations, syncopal episodes, abdominal pain, nausea/vomiting/diarrhea, fever, or other symptoms to report. Pain has been constant since onset, no other exacerbating factors reported other than palpation. No alleviating factors. She has never had this pain before, denies history of GERD. She does have a history of anxiety and depression, on buspirone, fluvoxamine for OCD, and hydroxyzine as needed. MD complaint: chest pain Onset (ago): hour(s) Timing of current episode: constant Prior episodes: No Onset: during rest Pain location: left chest Pain radiation: none Severity: moderate Quality: sharp Relieving factors: nothing Exacerbating factors: palpation Associated symptoms: Reports no associated symptoms; Deny abdominal pain, dyspnea, fever(s), nausea, palpitations or vomiting Treatment prior to arrival: none Risk Factors: Coronary artery disease risk factors: family history of CAD before age 50 Thoracic aortic dissection risk factors: none Related Data Home Medications Medication Instructions Recorded Confirmed No Known Home Medications 07/14/24 07/14/24 Allergies Allergy/AdvReac Type Severity Reaction Status Date / Time amoxicillin Allergy Severe Hives, Verified 07/14/24 13:17 Swelling cephalexin [From Keflex] Allergy Severe Hives, Verified 07/14/24 13:17 swelling Penicillins Allergy Severe ALGY-Swell Verified 07/14/24 13:17 Lip/Tongue/Throat, Hives Review of Systems 2 General: Reports: 10 or more systems reviewed and unremarkable except in HPI and below Const: Denies: fever(s), chills or fatigue Eyes: Denies: change in vision ENMT: Denies: throat pain, ear or mastoid pain or nasal discharge Card: Reports: chest pain; Denies: palpitations, swelling of feet/ankles or lightheadedness Resp: Denies: dyspnea, productive cough or wheezing GI: Denies: abdominal pain, nausea, vomiting, diarrhea or constipation : Denies: flank pain, difficulty voiding, dysuria or urinary frequency Musc: Denies: neck pain, back pain or joint pain Skin/Breast: Denies: rash Neuro: Denies: headache(s), numbness in extremities or weakness in extremities PFSH ED 2 PFSH: Medical History Anxiety and depression Diagnosed in 2017-symptoms controlled on medicine managed by primary care provider. She does not have a therapist No pertinent past medical history Denies diabetes, asthma, hypertension, seizures, DVT/PE PMD: Dr. Byrnes Surgical History S/P hysterectomy Laparoscopic-assisted vaginal hysterectomy with bilateral salpingectomy on 12/24/2018 for lower abdominal pain and heavy periods [place]. Cam[place] [facility] [place] Pathology showed mild endocervical atypia consistent with history of previous cervical abnormalities treated with a LEEP. Myometrium showed superficial adenomyosis. Benign tubes endometrium and serosa. S/P LEEP (loop electrosurgical excision procedure) 08/21/2017----> [place] [facility] [place] by Dr. 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 ECC was benign. S/P appendectomy 2006-------------> laparoscopic procedure done in [place]. Appendix was taken out incidentally at time of gallbladder surgery S/P cholecystectomy 2006----> laparoscopic procedure done in 2006 and [place]. Appendix was taken out incidentally at the same time. History of kidney surgery Placement of ureteral stents in 2007 for kidney stones which were removed later. S/P breast augmentation in 2013 S/P tubal ligation tubal ligation via umbilical incision on 01/15/2017. Family History Father Heart disease Hypertension Diabetes Hyperlipidemia Stroke Grandfather Heart disease paternal Hypertension paternal Diabetes paternal Hyperlipidemia paternal Stroke paternal Mother Hyperlipidemia Grandmother Hyperlipidemia paternal Denies family history of Colon cancer Ovarian cancer Breast cancer Uterine cancer Thyroid disease Social History Smoking and tobacco/nicotine status: current every day tobacco/nicotine user e- cigarettes E-Cigarette Details: vaporizer device and with nicotine E-cig/vape details: 5% Quit status (tobacco/nicotine): has tried quititng Number of times tried to quit tobacco: 3 Second hand smoke exposure: No Physical Exam 2 Const: COMMON NORMALS: patient oriented x3 and no limitations GENERAL APPEARANCE: cooperative, well developed and anxious O RIENTATION/CONSCIOUSNESS: Yes awake, Yes oriented to person, Yes oriented to place and Yes oriented to time HENMT: COMMON NORMALS: normocephalic, atraumatic and hearing grossly normal bilaterally HEAD & SCALP: normocephalic and atraumatic Eye: COMMON NORMALS: Equal, round and reactive pupils present, EOMs intact bilaterally and conjunctivae normal CONJUNCTIVA: Yes conjunctivae normal P UPIL: Yes Equal, round and reactive pupils present Neck/C-Spine: COMMON NORMALS: full ROM, supple and no JVD Chest: OTHER: Reproducible tenderness to palpation of the left anterior chest wall Resp: COMMON NORMALS: normal respiratory effort, No retractions, No use of accessory muscles and clear to auscultation bilaterally AUSCULTATION: clear to auscultation bilaterally Cardio: COMMON NORMALS: no JVD, regular rate, regular rhythm, No clicks present (Cardio), No murmurs present (Cardio) and No rub (Cardio) RATE: r egular rate RHYTHM: regular rhythm GI: COMMON NORMALS: Normal to inspection, nondistended, normoactive bowel sounds present, Soft to palpation and non-tender AUSCULTATION: Yes normoactive bowel sounds PALPATION: Yes Soft to palpation RECTAL EXAM: d eferred Extremity: COMMON NORMALS: normal to inspection, full ROM and capillary refill normal Neuro: COMMON NORMALS: patient oriented x3, moves all extremities, no focal motor deficits and no sensory deficits noted SENSORIUM/ORIENTATION: Yes oriented to person, Yes oriented to place and Yes oriented to time Skin: COMMON NORMALS: no rashes or lesions noted GENERAL SKIN EXAM: no rashes or lesions noted Course 2 Vital Signs: Vital signs: Vital Signs Temperature 98.0 F 07/14/24 13:12 Pulse Rate 94 07/14/24 13:12 Respiratory Rate 14 07/14/24 13:12 Blood Pressure 122/86 07/14/24 13:12 Pulse Oximetry 100 07/14/24 13:12 Oxygen Delivery Me thod Room Air 07/14/24 13:12 MDM - Chest Pain Medical Decision Making Patient presenting with left chest pain constant. No pertinent cardiac history, reports family history of cardiac events. Physical exam unremarkable, though is notable that the pain was reproducible to palpation to the anterior chest wall. Chest x-ray did not demonstrate any acute cardiopulmonary process. Her labs were normal. Baseline troponin was normal. EKG obtained in triage was normal, repeat EKG did not show any changes. Heart score of 0. I do not suspect ACS as a cause of her pain, she does not have primary care so I will place referral for her to follow-up closely for general reevaluation. Discussed plan with patient, she is comfortable with this plan at this time. Her vitals have been stable throughout ED course, I do not suspect PE or other pulmonary process. Lab Data 07/14/24 13:44 07/14/24 13:44 Radiology Impressions Chest X-Ray 07/14/24 13:23 IMPRESSION: 1. Prominent RIGHT perihilar markings unchanged since prior study. No acute cardiopulmonary process is suspected. Laboratory Results WBC 6.90 10^3/uL (3.29-11.43) 07/14/24 13:44 RBC 4.46 10^6/uL (3.85-5.65) 07/14/24 13:44 Hgb 13.10 g/dL (11.27-16.99) 07/14/24 13:44 Hct 39.2 % (36-47) 07/14/24 13:44 MCV 87.9 fl (85-98) 07/14/24 13:44 MCH 29.4 pg (27-33) 07/14/24 13:44 MCHC 33.4 g/dL (30-55) 07/14/24 13:44 RDW 12.8 % (12.1-15.1) 07/14/24 13:44 Plt Count 251 10^3/cmm (157-399) 07/14/24 13:44 MPV 10.0 fL (7.4-10.4) 07/14/24 13:44 Neut % (Auto) 62.7 % 07/14/24 13:44 Lymph % (Auto) 27.2 % 07/14/24 13:44 [place] % (Auto) 6.8 % 07/14/24 13:44 Eos % (Auto) 2.6 % 07/14/24 13:44 Baso % (Auto) 0.4 % 07/14/24 13:44 Neut # (Auto) 4.32 10^3/uL (1.8-7.7) 07/14/24 13:44 Lymph # (Auto) 1.9 10^3/uL (0.8-4.8) 07/14/24 13:44 [place] # (Auto) 0.5 10^3/uL (0.2-0.9) 07/14/24 13:44 Eos # (Auto) 0.2 10^3/uL (0.0-0.8) 07/14/24 13:44 Baso # (Auto) 0.0 10^3/uL (0.0-0.1) 07/14/24 13:44 Nucleated RBC % (auto) 0 % 07/14/24 13:44 Nucleated RBCs # 0.0 /100WBC 07/14/24 13:44 Sodium 137 mmol/L (136-145) 07/14/24 13:44 Potassium 4.4 mmol/L (3.5-5.1) 07/14/24 13:44 Chloride 103 mmol/L (98-107) 07/14/24 13:44 Carbon Dioxide 21 mmol/L (22-29) L 07/14/24 13:44 Anion Gap 17.4 (5-19) 07/14/24 13:44 BUN 7 mg/dL (6-20) 07/14/24 13:44 Creatinine 0.7 mg/dL (0.5-0.9) 07/14/24 13:44 GFR Calculation 96.4 mL/min (90-130) 07/14/24 13:44 Glucose 90 mg/dL (65-115) 07/14/24 13:44 Calculated Osmolality 282 mOsm/kg (285-295) L 07/14/24 13:44 Calcium 8.9 mg/dL (8.5-10.5) 07/14/24 13:44 Total Bilirubin 0.4 mg/dL (0.15-1.2) 07/14/24 13:44 AST 19 U/L (0-32) 07/14/24 13:44 ALT 26 U/L (0-33) 07/14/24 13:44 Alkaline Phosphatase 106 U/L (35-105) H 07/14/24 13:44 Troponin T Baseline < 6 ng/L (0-10) 07/14/24 13:44 Total Protein 6.8 g/dL (6.6-8.7) 07/14/24 13:44 Albumin 4.5 g/dL (3.5-5.2) 07/14/24 13:44 Globulin 2.3 g/dL (1.3-4.6) 07/14/24 13:44 HCG, Qual Negative (Negative) 07/14/24 13:44 All radiology interpretation(s) finalized by discharge EKG Data EKG 1: I personally reviewed and interpreted this EKG as follows: EKG interpretation date: 07/14/24 EKG interpretation time: 13:24 Prior EKG tracings: not available for review Interpretation: Normal sinus rhythm. Rate 92. No acute ST segment changes. No previous for comparison. EKG 2: I personally reviewed and interpreted this EKG as follows: EKG interpretation date: 07/14/24 EKG interpretation time: 15:31 Prior EKG tracings: available for review Interpretation: Normal sinus rhythm. Rate 72. No acute ST segment changes. No change from previous earlier today. Discharge Plan Discharge Patient Disposition: Home Clinical Impression: Chest pain, non-cardiac Condition: Stable Prescriptions: No Action No Known Home Medications Discharge Orders: Discharge ED (Routine); Ordered 07/14/24 Ordered By: Jose Marx Referrals: Curtis Byrnes MD [Primary Care Provider] - Patient Instructions: Chest Pain (ED) Activity Restrictions/Additional Instructions: Follow-up with primary care for further evaluation. Return with any worsening of chest pain or other concerns that you have. Coding Level of Care Code ED Administrative Supervisor for Chg Cecile
[2024-07-14 13:46] VITALS: BP 126/82; PULSE 107; O2SAT 99
[2024-07-14 13:53] LABS: Basophils % 0.4 %; Eosinophils # 0.2 10^3/uL (0.0-0.8); Eosinophils % 2.6 %; Hematocrit 39.2 % (36-47); Lymphocytes # 1.9 10^3/uL (0.8-4.8); Lymphocytes % 27.2 %; Mean Corpuscular HGB Conc 33.4 g/dL (30-55); Mean Corpuscular Hemoglobin 29.4 pg (27-33); Mean Corpuscular Volume 87.9 fl (85-98); Monocytes # 0.5 10^3/uL (0.2-0.9); Monocytes % 6.8 %; Neutrophils # 4.32 10^3/uL (1.8-7.7); Neutrophils % 62.7 %; Nucleated Red Blood Cells % 0 %; Platelet Count 251 10^3/cmm (157-399); Red Blood Count 4.46 10^6/uL (3.85-5.65); Red Cell Distribution Width 12.8 % (12.1-15.1)
[2024-07-14 14:00] VITALS: BP 144/89; PULSE 83; O2SAT 100
[2024-07-14 14:08] LABS: HCG, Serum Qual Negative (Negative)
[2024-07-14 14:15] LABS: Troponin(5th) Baseline < 6 ng/L (0-10)
[2024-07-14 14:30] VITALS: BP 128/91; PULSE 88; O2SAT 99
[2024-07-14 15:00] VITALS: BP 135/68; PULSE 87; O2SAT 98
--- NOTE | 2024-07-14 15:23 | ECG_ITS ---
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 Measurements Intervals [place] Rate: 72 P: 47 MD: 170 QRS: 2 QRSD: 77 T: 48 QT: 375 QTc: 413 Interpretive Statements SINUS RHYTHM Compared to ECG 07/14/2024 13:10:21 No significant changes Electronically Signed On 07-17-2024 13:42:33 BRICK CLEANER by Benny Cazares M.D. [email or web address]
[2024-07-14 15:27] LABS: Alanine Aminotransferase 26 U/L (0-33); Albumin Level 4.5 g/dL (3.5-5.2); Alkaline Phosphatase 106 U/L (35-105); Anion Gap 17.4 (5-19); Aspartate Amino Transferase 19 U/L (0-32); Blood Urea Nitrogen 7 mg/dL (6-20); Calcium 8.9 mg/dL (8.5-10.5); Carbon Dioxide 21 mmol/L (22-29); Chloride 103 mmol/L (98-107); Creatinine Clr Calc Pharmacy 150.6107; Globulin 2.3 g/dL (1.3-4.6); Glomerular Filtration Rate 96.4 mL/min (90-130); Glucose 90 mg/dL (65-115); Osmolality Calculated 282 mOsm/kg (285-295); Potassium 4.4 mmol/L (3.5-5.1); Sodium 137 mmol/L (136-145); Total Bilirubin 0.4 mg/dL (0.15-1.2); Total Protein 6.8 g/dL (6.6-8.7)
[2024-07-14 15:35] VITALS: BP 107/85; PULSE 73; O2SAT 98
== END 2024-07-14 15:36 | disposition home or self-care (01) ==
PROVIDERS: Emergency Provider Physician Assistant; PCP Family Medicine
DX: R07.89 Other chest pain (principal); F17.290 Nicotine dependence, other tobacco product, uncomplicated
CPT/HCPCS: 36415; 71045; 80053; 84484; 84703; 85025; 93005; 99285